=== PATIENT | female | born 1980 | race Caucasian/White ===

== ENCOUNTER → 2016-11-12 | Outpatient (CLI) | payer BC | END | disposition home or self-care (01) | LOC: MERGE 12:25 → C.LABMFLN 12:25 | PROVIDERS: ATTEND Family Medicine | DX: R31.9 Hematuria, unspecified (principal) ==

== ENCOUNTER → 2016-11-13 | Outpatient (CLI) | payer BC ==
[2016-11-13 13:02] LABS: BASO % 0.3 %; BASO ABS # 0.02 K/uL (0-0.2); EOS % 1.7 %; HEMATOCRIT 33.3 % (37-47); IG% 0.4 %; LYMPH % 27.6 %; LYMPH ABS # 2.16 K/uL (1.2-3.4); MEAN CELL VOLUME 68.5 fL (80-100); MEAN CORPUSCULAR HEMOGLOBIN 21.6 pg (25-34); MEAN CORPUSCULAR HGB CONC 31.5 g/dl (32-36); MEAN PLATELET VOLUME 9.6 fL (7.4-10.4); PLATELET COUNT 386 K/uL (130-400); RED BLOOD COUNT 4.86 M/uL (4.2-5.4); WHITE BLOOD COUNT 7.84 K/uL (4.8-10.8)
[2016-11-13 13:47] LABS: COMPLETE YES; MICROCYTOSIS PRESENT; OVALOCYTES 1+; STOMATOCYTE 1+
[2016-11-13 13:59] LABS: ALB/GLOB RATIO 0.8 (0.9-2); ALKALINE PHOSPHATASE 115 U/L (45-117); ALT/SGPT 20 U/L (12-78); AST/SGOT 10 U/L (15-37); BLOOD UREA NITROGEN 12 mg/dl (7-18); BUN/CREATININE RATIO 17.1 (10-20); CALCIUM 9.1 mg/dl (8.5-10.1); CARBON DIOXIDE 27 mmol/L (21-32); CHLORIDE 102 mmol/L (98-107); CHOLESTEROL 224 mg/dl (0-200); CHOLESTEROL/HDL RATIO 3.7; CREATININE 0.69 mg/dl (0.60-1.20); GLUCOSE 90 mg/dl (70-99); HDL CHOLESTEROL 61 mg/dl; LDL CHOLESTEROL CALCULATED 128 mg/dl; POTASSIUM 3.6 mmol/L (3.5-5.1); SODIUM 140 mmol/L (136-145); TRIGLYCERIDES 177 mg/dl (0-150); VERY LOW DENSITY LIPOPROT CALC 35 mg/dl
[2016-11-13 14:03] LABS: TOTAL IRON BINDING CAPACITY 478 mcg/dl (250-450)
== END | disposition home or self-care (01) ==
LOC: MERGE 11:21 → C.LABMFLN 11:21
PROVIDERS: ATTEND Family Medicine
DX: Z00.00 Encounter for general adult medical examination without abnormal findings (principal); R31.9 Hematuria, unspecified; E78.5 Hyperlipidemia, unspecified; E66.01 Morbid (severe) obesity due to excess calories; D64.9 Anemia, unspecified; R53.83 Other fatigue; R82.8 Abnormal findings on cytological and histological examination of urine

== ENCOUNTER → 2016-11-21 | Outpatient (CLI) | payer BC | END | disposition home or self-care (01) | LOC: C.PATHSPEC 16:58 | PROVIDERS: ATTEND Urology | DX: N20.0 Calculus of kidney (principal); N30.00 Acute cystitis without hematuria; N30.10 Interstitial cystitis (chronic) without hematuria ==

== ENCOUNTER → 2016-11-21 | Outpatient (CLI) | payer BC ==
[~2016-11-21] MED LIST: OPTIRAY 320 IV PRN
--- NOTE | 2016-11-21 11:13 | DIAGNOSTIC IMAGING REPORT ---
[facility] CLINICAL HISTORY: Hematuria COMPARISON STUDY: No previous studies for comparison. FINDINGS: There is an 8.5 cm staghorn left renal calculus. No definite right renal calculi are visualized. There is no pathologic bowel dilatation. There are multiple nonspecific pelvic basin calcifications, likely represent phleboliths. A distal ureteral calculus could appear similar. IMPRESSION: 8.5 cm staghorn left renal calculus Electronically signed by: Alexey Diaz M.D. 11/21/2016 11:11 AM Dictated Date/Time: 11/21/2016 11:09 AM
--- NOTE | 2016-11-21 12:15 | DIAGNOSTIC IMAGING REPORT ---
CT OF THE ABDOMEN AND PELVIS WITH AND WITHOUT CONTRAST HEMATURIA PROTOCOL CLINICAL HISTORY: Hematuria. COMPARISON STUDY: [facility] November 21, 2014. TECHNIQUE: Unenhanced and split bolus phase imaging of the abdomen and pelvis was performed. Injection of 116 cc of Optiray [address] DOSE: 2817.83 mGycm FINDINGS: There is a large left renal staghorn calculus that measures approximately 8.5 cm. This involves the majority of the left renal collecting system. No ureteral calculi are present. Note is made of a 3 mm calculus within lower pole of the right kidney. There are no solid renal lesions. No upper tract urothelial lesions are identified. The liver, spleen, adrenal glands and pancreas are normal. No enlarged lymph nodes are present. No suspicious osseous lesions are identified. No bladder masses are identified although sensitivity is diminished given suboptimal opacification. IMPRESSION: 1. Large left renal staghorn calculus, measuring approximately 8.5 cm. 2. 3 mm right renal calculus. No ureteral calculi. 4. No solid renal lesions. No upper tract urothelial lesions. Electronically signed by: Héctor Carver M.D. 11/21/2016 12:14 PM Dictated Date/Time: 11/21/2016 12:02 PM
== END | disposition home or self-care (01) ==
LOC: C.CTS 10:27 → MERGE 11:00
PROVIDERS: ATTEND Urology
DX: N20.0 Calculus of kidney (principal)

== ENCOUNTER → 2016-12-30 | Outpatient (CLI) | payer BC | END | disposition home or self-care (01) | LOC: C.LABMFLN 08:02 | PROVIDERS: ATTEND Urology | DX: N39.0 Urinary tract infection, site not specified (principal) ==

== ENCOUNTER → 2017-01-10 | Outpatient (CLI) | payer BC ==
[2017-01-10 18:11] LABS: URINE APPEARANCE CLOUDY (CLEAR); URINE BILIRUBIN NEG (NEG); URINE COLOR YELLOW; URINE EPITHELIAL CELL AUTO >30 /lpf (0-5); URINE NITRITE NEG (NEG); URINE PH 6.5 (4.5-7.5); UROBILINOGEN NEG (NEG)
[2017-01-10 18:12] LABS: MANUAL MICROSCOPIC REQUIRED? NO; REVIEW REQ? YES
== END | disposition home or self-care (01) ==
LOC: C.LABMFLN 10:21
PROVIDERS: ATTEND Urology
DX: N39.0 Urinary tract infection, site not specified (principal)

== ENCOUNTER → 2017-01-15 | Outpatient (CLI) | payer BC | END | disposition home or self-care (01) | LOC: C.LABMFLN 07:48 | PROVIDERS: ATTEND Urology | DX: N20.0 Calculus of kidney (principal) ==

== ENCOUNTER → 2017-01-27 | Outpatient (CLI) | payer BC ==
[2017-01-27 13:30] LABS: URINE APPEARANCE TURBID (CLEAR); URINE BILIRUBIN NEG (NEG); URINE EPITHELIAL CELL AUTO >30 /lpf (0-5); URINE NITRITE NEG (NEG); URINE SPECIFIC GRAVITY 1.015 (1.000-1.030); UROBILINOGEN NEG (NEG)
[2017-01-27 13:34] LABS: MANUAL MICROSCOPIC REQUIRED? NO; REVIEW REQ? NO
[2017-01-27 13:35] LABS: URINE COLOR AMBER
== END | disposition home or self-care (01) ==
LOC: C.LABMFLN 07:47
PROVIDERS: ATTEND Urology
DX: N20.0 Calculus of kidney (principal)

== ENCOUNTER → 2017-02-12 | Outpatient (CLI) | payer BC ==
[2017-02-12 13:36] LABS: URINE APPEARANCE TURBID (CLEAR); URINE BILIRUBIN NEG (NEG); URINE COLOR YELLOW; URINE EPITHELIAL CELL AUTO >30 /lpf (0-5); URINE NITRITE NEG (NEG); URINE SPECIFIC GRAVITY 1.018 (1.000-1.030); UROBILINOGEN NEG (NEG)
[2017-02-12 13:38] LABS: MANUAL MICROSCOPIC REQUIRED? NO; REVIEW REQ? YES
== END | disposition home or self-care (01) ==
LOC: C.LABMFLN 09:38
PROVIDERS: ATTEND Urology
DX: N20.0 Calculus of kidney (principal)

== ENCOUNTER → 2017-03-12 | Outpatient (CLI) | payer BC | END | disposition home or self-care (01) | LOC: C.LABMFLN 16:44 | PROVIDERS: ATTEND Urology | DX: N39.0 Urinary tract infection, site not specified (principal) ==

== ENCOUNTER → 2017-06-18 | Outpatient (CLI) | payer BC | END | disposition home or self-care (01) | LOC: C.LABMFLN 15:57 | PROVIDERS: ATTEND Urology | DX: N39.0 Urinary tract infection, site not specified (principal) ==

== ENCOUNTER → 2017-12-16 | Outpatient (CLI) | payer BC ==
[2017-12-16 12:54] LABS: BLOOD UREA NITROGEN 16 mg/dl (7-18); CALCIUM 8.8 mg/dl (8.5-10.1); CARBON DIOXIDE 27 mmol/L (21-32); CREATININE 0.69 mg/dl (0.60-1.20); GLUCOSE 93 mg/dl (70-99); POTASSIUM 3.6 mmol/L (3.5-5.1); SODIUM 138 mmol/L (136-145)
== END | disposition home or self-care (01) ==
LOC: C.LABMFLN 07:27
PROVIDERS: ATTEND Urology
DX: N20.0 Calculus of kidney (principal)